=== PATIENT | female | born 1955 | race Caucasian/White ===

== ENCOUNTER 2018-10-08 11:40 | Inpatient (IN) | payer MEDICARE ==
[~2018-10-08] VITALS: Ht 162.6 cm; Wt 91.0 kg
[~2018-10-08 11:40] MED LIST changes: -ACET500; -CLIN300 PO; -LISI5 PO
[2018-10-08] MEDS ORDERED: ACET500 PO (14:35)
[2018-10-08] MEDS ORDERED: CLIN300 PO (14:35)
[2018-10-08] MEDS ORDERED: LISI5 PO ×2 (14:35→14:36)
--- NOTE | 2018-10-08 17:53 | NUR ---
SUMMARY PT ADMITTED FROM THE ER, PT IS ALERT AND ORIENTED AND INDEPENDENT IN THE ROOM, PT'S R SIDE OF HER FACE IS SLIGHTLY SWOLLEN, ICE PACK GIVEN, PT RESTING QUIETLY BUT WAKES EASILY, NO COMPLAINTS, WILL CONT TO MONITOR
[2018-10-09 05:00] LABS: BASOPHILS ABSOLUTE AUTO 0.04 K/mm3 (0.00-0.23); BASOPHILS PERCENT AUTO 1 % (0-2); EOSINOPHILS ABSOLUTE AUTO 0.18 K/mm3 (0.00-0.68); EOSINOPHILS PERCENT AUTO 2 % (0-6); Hematocrit 43.9 % (33.0-51.0); Hemoglobin 14.3 g/dL (11.5-16.0); IMMATURE GRAN ABSOLUTE AUTO 0.02 K/mm3 (0.00-0.10); IMMATURE GRAN PERCENT AUTO 0 % (0-1); LYMPHOCYTES ABSOLUTE AUTO 1.66 K/mm3 (0.84-5.20); LYMPHOCYTES PERCENT AUTO 19 % (21-46); MONOCYTES PERCENT AUTO 7 % (4-13); Mean Corpuscular HGB 30.2 pg (26.0-34.0); Mean Corpuscular HGB Conc 32.6 g/dL (31.5-36.5); Mean Platelet Volume 10.1 fL (9.1-12.4); NEUTROPHILS ABSOLUTE AUTO 6.17 K/mm3 (1.96-9.15); NEUTROPHILS PERCENT AUTO 71 % (41-73); Platelet Count 241 K/mm3 (150-400); RDW Coefficient Variation 12.2 % (11.7-14.2); Red Blood Cell Count 4.73 M/mm3 (3.80-5.20); White Blood Cell Count 8.67 K/mm3 (4.00-11.30)
[2018-10-09 05:08] LABS: Mean Corpuscular Volume 93 fL (80-100)
--- NOTE | 2018-10-09 05:18 | NUR ---
SHIFT SUMMARY PT ADMITTED FOR MUSCLE ABCESS OF THE R SIDE OF FACE. PT IS PLEASENT, COOPERATIVE, ALERT, ORIENTED, AND INDEPENDENT TO THE BATHROOM. PT HAD C/O SEVERE PAIN, ANXIETY, AND DIFFICULTY SLEEPING THIS NIGHT. HOWEVER, PT REPORTED DIFFICULTY SLEEPING PRIOR TO ARRIVAL TO THE HOSPITAL DUE TO THE PAIN AND HEADACHE, MEDICATED PER EMAR. PT FINALLY ABLE TO FALL ASLEEP, AWAKE FOR CARE FOR LABS AND MEDS AND NOW APPEARS TO BE SLEEPING COMFORTABLY WITH NO APPARENT SIGNS OF ACUTE DISTRESS. ABLE TO MAKE NEEDS KNOWN AND CALL LIGHT IN REACH.
--- NOTE | 2018-10-09 18:02 | NUR ---
SUMMARY PT SITTING UP IN BED WATCHING TV, PT HAS BEEN COOPERATIVE WITH CARE, IRRITABLE AT TIMES, PT MED PER EMAR FOR PAIN, PT HAS BEEN INDEPENDENT IN THE ROOM, VSS, NO ACUTE CHANGES, WILL CONT TO MONITOR
--- NOTE | 2018-10-10 04:29 | NUR ---
SHIFT SUMMARY NO ACUTE CHANGES NOTED SO FAR THIS SHIFT. PT ASKING FOR PAIN MEDICATIONS Q 2 HRS FOR MANAGMENT WHICH SHE FREQUENTLY STATES IS NOT EFFECTIVE. HOWEVER, WHEN ENTERING ROOM AFTER PULLING MEDS PT IS SLEEPING AND SNORING LOUDLY BUT STATING EXTREME PAIN. PT STATES THAT SHE FEELS THAT SHE SHOULD BE RECIEVING IV ANTIBIOTICS MORE THEN HER CURRENT DOSE SINCE "THE INFECTION IS SO BAD." THIS NURSE ADVISED PT TO CONSULT WITH MD IN THE AM. PT APPEARS TO BE SLEEPING COMFORTABLY AT THIS TIME SNORING VERY LOUDLY. NO APPARENT SIGNS OF ACUTE DISTRESS. ABLE TO MAKE NEEDS KNOWN AND CALL LIGHT IN REACH.
--- NOTE | 2018-10-10 10:27 | NUR ---
PT. SNORING LOUDLY AFTER RECEIVING FENTANYL, TORADOL, AND ATIVAN. NO S/S OF DISTRESS.
--- NOTE | 2018-10-10 12:01 | NUR ---
PT STILL SLEEPING AND SNORING, ROUSED UP WHEN UX RESEARCHER WENT IN ROOM AND ASKED IF IT WAS TIME FOR PAIN MEDS AGAIN THEN WENT BACK TO SNORING. DID NOT GIVE MORE PAIN MEDS AT THIS TIME.
--- NOTE | 2018-10-10 14:55 | NUR ---
PT. DEMANDED TO TALK TO DR. MARKS ABOUT HER PAIN MEDICATION, WANTS THE DILAUDID. I WAS TALKING TO DR. MARKS PT. CAME OUT AND DEMENDED TO TALK TO THE DR. TOLD DR. MARKS AND SHE SAID PUT HER ON THE PHONE. TALKED TO DR. MARKS RIGHT AFTER SHE TALKED TO THE PT. DR. MARKS SAID SHE WAS GOING TO PUT HER BACK ON THE DILAUDID AND SHE WOULD BE GETTING IT EVERY 4 HOURS TO BE STAGGERED WITH THE NORCO. DILAUDID IN 2 HOURS NORCO, IN 2 HOURS DILAUDID ETC... WHEN PT ASKED TO TAALK TO DR. MARKS SHE INDICATED SHE WAS IN EXCRUCIATING PAIN, SOON SHE KNEW SHE WAS GOING TO GET DILAUDID SHE TOOK OF FOR THE CAFETERIA WITH HER SPOUSE WITHOUT GETTING THE DILAUDID FIRST. PT. NEVER CAME BACK UNTIL 1630 AND ASKED FOR THE DILAUDID AT 1646 WHICH WAS GIVEN. AT 1745 SHE WAS ASKING FOR PAIN MEDS AGAIN WHICH IT WAS NOT TIME FOR. AT THIS TIME SHE IS SNORING LOUDLY.
--- NOTE | 2018-10-10 22:14 | NUR ---
0 PT REQUESTING TO BE WOKEN UP TO BE ASSESSED FOR PAIN. THIS NURSE EXPLAINED THAT THE MEDICATIONS THAT HAVE BEEN ORDERED FOR HER ARE NEEDED MEDICATIONS AND SHE MUST ASK FOR THEM.
--- NOTE | 2018-10-11 04:42 | NUR ---
0350 STATED IN SEVERE PAIN AND EXTREMELY ANXIOUS. REMINDED PT THAT ANXIETY MEDICATION WILL NOT BE DUE UNTIL 0630. PT MEDICATED PER EMAR (NORCO ADMINISTERED). BECAME TEARFUL, STOOD UP AND WALKED AROUND BED. TOOK PAIN MEDICATION STANDING UP. LET PT KNOW THIS NURSE WOULD BE BACK IN TO CHECK ON HER. PT WENT TO RESTROOM AFTER THIS NURSE LEFT THE ROOM. ABOUT 2 MINUTES INTO BATHROOM PT QUIT CRYING. UP WALKING AROUND; OUT IN HALLWAY. BACK TO BED AROUND 0430. CURRENTLY SNORING IN BED. WCTM.
--- NOTE | 2018-10-11 05:05 | NUR ---
SHIFT SUMMARY A/O X4, ABLE TO MAKE NEEDS KNOWN. MULTIPLE REQUESTS FROM STAFF THIS SHIFT. UP WALKING HALLWAYS PERIODICALLY. APPEARED TO REST OFF AND ON WITH SNORING. C/O PAIN RATED 7-9/10; MEDICATED PER EMAR. NEW IV PLACED TO LFA. HYPERTENSIVE THIS AM; HOWEVER, APPEARS ON TREND WITH PREVIOUS PRESSURES. ALL OTHER VITALS WNL. BED IN LOWEST POSITION. CALL LIGHT IN REACH. WCTM. REPORT TO ONCOMING RN.
[2018-10-11 08:01] LABS: BASOPHILS ABSOLUTE AUTO 0.03 K/mm3 (0.00-0.23); BASOPHILS PERCENT AUTO 0 % (0-2); EOSINOPHILS ABSOLUTE AUTO 0.14 K/mm3 (0.00-0.68); EOSINOPHILS PERCENT AUTO 1 % (0-6); Hematocrit 42.2 % (33.0-51.0); Hemoglobin 13.9 g/dL (11.5-16.0); IMMATURE GRAN ABSOLUTE AUTO 0.04 K/mm3 (0.00-0.10); IMMATURE GRAN PERCENT AUTO 0 % (0-1); LYMPHOCYTES ABSOLUTE AUTO 1.14 K/mm3 (0.84-5.20); LYMPHOCYTES PERCENT AUTO 10 % (21-46); MONOCYTES ABSOLUTE AUTO 1.07 K/mm3 (0.16-1.47); MONOCYTES PERCENT AUTO 9 % (4-13); Mean Corpuscular HGB 30.1 pg (26.0-34.0); Mean Corpuscular HGB Conc 32.9 g/dL (31.5-36.5); Mean Corpuscular Volume 91 fL (80-100); Mean Platelet Volume 9.5 fL (9.1-12.4); NEUTROPHILS ABSOLUTE AUTO 8.95 K/mm3 (1.96-9.15); NEUTROPHILS PERCENT AUTO 79 % (41-73); Platelet Count 234 K/mm3 (150-400); RDW Standard Deviation 40.2 fL (35.1-46.3); Red Blood Cell Count 4.62 M/mm3 (3.80-5.20); White Blood Cell Count 11.37 K/mm3 (4.00-11.30)
[2018-10-11 08:16] LABS: Anion Gap 5 mmol/L (6-16); Blood Urea Nitrogen 8 mg/dL (8-24); Bun/Creatinine Ratio 13.1 (12.0-20.0); CO2, Blood 31 mmol/L (21-32); Calcium, Blood 8.5 mg/dL (8.5-10.1); Chloride, Blood 100 mmol/L (98-108); Creatinine, Blood 0.61 mg/dL (0.40-1.00); Glomerular Filtration Rate >60 (60-); Glucose, Blood 120 mg/dL (70-99); Potassium, Blood 3.8 mmol/L (3.5-5.5); Sodium, Blood 136 mmol/L (136-145)
--- NOTE | 2018-10-11 18:15 | NUR ---
SHIFT SUMMARY PT HAD A CT SCAN TODAY OF THE ABCESS IN HER RT JAW. CALLED AND INFORMED ME THAT THE ABSCESS SEEMS TO HAVE GROWN. DR UPDATE THE EMAR TO ALLOW FOR MORE PAIN AND ANXIETY CONTROL, WITH MORE FREQUENT DOSAGE RATES. PT IS INDEPENDENT IN ROOM, ON ROOM AIR, CONTINENT. PT IS RECEIVING IV FLAGYL FOR THE ABSCESS SHE ALLERGIC TO AMPICILLIN. PT HAS NOT NEEDED ATIVAN DOSEAGES THROUGHOUT THIS SHIFT, BUT HAS REQUESTED THE PAIN MEDICATION. STATES POSSIBILITY OF AN E.N.T. CONSULT TOMORROW.
--- NOTE | 2018-10-12 04:27 | NUR ---
63 YEAR OLD fEMALE HAD REPEAT FACIAL CT DUE TO COMPLAINTS OF SEVERE RT SIDED MUSCLE ABSCESS. CT SHOWED WORSENING ABSCESS WITH INCREASED SIZE. ENT CONSULT PENDING,. ENT HAS NOT BEEN AVAILABLE BUT WILL BE TODAY. CONTINUES ON CLINDAMYCIN AND FLAGYL IV. MEDICATED MULTIPLE TIMES WITH IV DILAUDID 1 MG WITH HELPFUL EFFECT. WARM BLANKET TO RT FACE PRN ALSO HELPFUL. ANTIANXIETY RX ATIVAN 0.5 MG GIVEN X 1. TYLENOL 650 MG PO X 2 GIVEN WITH MILD HELPFUL EFFECT. TORADOL GIVEN Q 6 HRS PRN. TOLERATING FULL LIQUID DIET. DENIES AIRWAY COMPROMISE. ON ROOM AIR. HTN BETTER ON ORAL ANTIHYPERTENSIVE.
--- NOTE | 2018-10-12 18:32 | NUR ---
SHIFT SUMMARY DR. HUA ATTEMPTED TO DRAIN THE RT JAW ABSCESS TODAY AT BEDSIDE. PT WAS UNABLE TO OPEN MOUTH WIDE ENOUGH FOR DR TO COMPLETE THE PROCEDURE. DR HUA ORDERED DECADRON TO DECREASE THE SWELLING AND INFLAMMATION. ORDERED A NEEDLE GUIDED ULTRASOUND TO HOPEFULLY DRAIN THE ABSCESS TODAY. THE PT COMPLAINED OF PAIN AND ANXIETY PERIODICALLY THROUGHOUT THE DAY. SHE WAS TREATED PER EMAR AND BROUGHT WARM COMPRESSES PRN. NO OTHER CHANGES THROUGHOUT SHIFT. DR. HUA'S NEEDLES AND OTHER TOOLS REQUIRED FOR A POSSIBLE BEDSIDE PROCEDURE ARE AVAILABLE IN THE LOCKED DRAWER FOR HIS RETURN TOMORROW.
[2018-10-13 05:17] LABS: Anion Gap 12 mmol/L (6-16); Blood Urea Nitrogen 19 mg/dL (8-24); Bun/Creatinine Ratio 26.9 (12.0-20.0); CO2, Blood 26 mmol/L (21-32); Calcium, Blood 8.6 mg/dL (8.5-10.1); Chloride, Blood 100 mmol/L (98-108); Creatinine, Blood 0.71 mg/dL (0.40-1.00); Glomerular Filtration Rate >60 (60-); Glucose, Blood 146 mg/dL (70-99); Potassium, Blood 4.3 mmol/L (3.5-5.5); Sodium, Blood 138 mmol/L (136-145)
--- NOTE | 2018-10-13 05:22 | NUR ---
SHIFT SUMMARY PT ADMITTED FOR ABCESS OF MUSCLE. FULL CODE. FULL LIQUID DIET. LOVENOX FOR DVT. 22G IV TO L FA. PT IS NOT NEW TO THIS NURSE. PT HAS A REPEAT SCAN OF ABCESS ON 10/11/18 WITH THE RESULTS SHOWING AND INCREASE IN SIZE FROM SCAN THAT WAS PERFORMED ON 10/08/18. THE PT UNDERWENT ULTRASOUND GUIDED ASPIRATION OF THE R-SIDED FACIAL ABCESS WITH AN 18G NEEDLE THE 20G NEEDLE PRESENT NO RESULTS. 1 ML OF PURULENT MATERIAL WAS SUCCESSFULLY REMOVED FROM THE ABCESS. HOWEVER, THE PT WAS UNABLE TO TOLLERATE ADDITIONAL RESPOSITION ATTEMPTS OF THE NEEDLE IN ORDER TO POTENTIALLY REMOVE ADDITIONAL MATERIAL. PAIN CONTROL REMAINS A PROBLEM FOR PT. MEDICATED SEVERAL TIMES PER EMAR. HOWEVER, PTS PAIN DOES APPEAR TO BE BETTER CONTROLLED THEN PREVIOUS SHIFTS WITH THIS PT AND THE PT STATES THAT SHE FEELS THAT IT DOES FEEL A LITTLE BETTER. THE PT IS OUTSIDE AT THIS TIME. NO APPARENT SIGNS OF ACUTE DISTRESS THIS NIGHT. ABLE TO MAKE NEEDS KNOWN AND CALL LIGHT IN REACH.
[2018-10-13 06:31] LABS: BASOPHILS ABSOLUTE AUTO 0.02 K/mm3 (0.00-0.23); BASOPHILS PERCENT AUTO 0 % (0-2); EOSINOPHILS PERCENT AUTO 0 % (0-6); Hematocrit 41.8 % (33.0-51.0); Hemoglobin 13.9 g/dL (11.5-16.0); IMMATURE GRAN ABSOLUTE AUTO 0.07 K/mm3 (0.00-0.10); IMMATURE GRAN PERCENT AUTO 0 % (0-1); LYMPHOCYTES ABSOLUTE AUTO 0.66 K/mm3 (0.84-5.20); LYMPHOCYTES PERCENT AUTO 4 % (21-46); MONOCYTES ABSOLUTE AUTO 0.79 K/mm3 (0.16-1.47); MONOCYTES PERCENT AUTO 5 % (4-13); Mean Corpuscular HGB 30.2 pg (26.0-34.0); Mean Corpuscular HGB Conc 33.3 g/dL (31.5-36.5); Mean Corpuscular Volume 91 fL (80-100); Mean Platelet Volume 9.7 fL (9.1-12.4); NEUTROPHILS ABSOLUTE AUTO 14.99 K/mm3 (1.96-9.15); NEUTROPHILS PERCENT AUTO 91 % (41-73); Platelet Count 379 K/mm3 (150-400); RDW Coefficient Variation 11.9 % (11.7-14.2); RDW Standard Deviation 39.8 fL (35.1-46.3); White Blood Cell Count 16.53 K/mm3 (4.00-11.30)
--- NOTE | 2018-10-13 17:17 | NUR ---
PT IS AOX4 AND COOPERATIVE OF CARE. PT STATES SHE IS DOING MUCH BETTER WITH HER PAIN AND IS ABLE TO OPEN HER MOUTH UP EASIER TODAY. DR HUA WAS HAPPY WITH HER PROGRESS AND WILL TREAT WITH MEDICATION AT THIS TIME. PT IS TREATED FOR PAIN PER EMAR. NO DISTRESS NOTED AT THIS TIME. CULTURE ORDER WAS DC'D DUE TO DR HUA NOT KEEPING EXTRACTED FLUID TO CULTURE AND NOTES FROM DR HUA ARE PLACED IN CHART.
--- NOTE | 2018-10-14 03:59 | NUR ---
SHIFT SUMMARY NO ACUTE CHANGES NOTED SO FAR THIS SHIFT. PT APPEARS TO BE FEELING QUITE BETTER AND DOES NOT APPEAR TO BE IN ANY DISTRESS. PT WALKS HOSPITAL HALLS FREELY THROUGHOUT THE DAY, GOES OUTSIDE WITH FRIENDS AND TODAY ATE PIZZA FOR DINNER. MENTAL HEALTH AIDES TEACHER TOLD THIS NURSE THAT PT WAS ALSO COUGHT GOING INTO ANOTHER PATIENTS ROOM. THIS NURSE EDUCATED PT THAT IT IS NEVER OKAY TO GO INTO ANOTHER PTS ROOM REGARDLESS OF THE REASON. PT VERBALIZED AN UNDERSTANDING. PT ABLE TO MAJOR ON CONVERSATION WITHOUT DIFFICULTY. MEDICATED FOR PAIN X1 SO FAR THIS SHIFT. PT IN ROOM EATING. CAME OUT A LITTLE BIT AGO COMPLAINING ABOUT BEING HUNGRY AND MENTAL HEALTH AIDES TEACHER GAVE SNACK. NO APPARENT SIGNS OF ACUTE DISTRESS. ABLE TO MAKE NEEDS KNOWN AND CALL LIGHT IN REACH.
[2018-10-14 05:17] LABS: BASOPHILS ABSOLUTE AUTO 0.01 K/mm3 (0.00-0.23); BASOPHILS PERCENT AUTO 0 % (0-2); EOSINOPHILS PERCENT AUTO 0 % (0-6); IMMATURE GRAN ABSOLUTE AUTO 0.08 K/mm3 (0.00-0.10); IMMATURE GRAN PERCENT AUTO 1 % (0-1); LYMPHOCYTES ABSOLUTE AUTO 0.95 K/mm3 (0.84-5.20); LYMPHOCYTES PERCENT AUTO 7 % (21-46); MONOCYTES ABSOLUTE AUTO 0.29 K/mm3 (0.16-1.47); MONOCYTES PERCENT AUTO 2 % (4-13); Mean Corpuscular HGB 30.7 pg (26.0-34.0); Mean Corpuscular HGB Conc 33.3 g/dL (31.5-36.5); Mean Corpuscular Volume 92 fL (80-100); Mean Platelet Volume 10.3 fL (9.1-12.4); NEUTROPHILS ABSOLUTE AUTO 13.05 K/mm3 (1.96-9.15); NEUTROPHILS PERCENT AUTO 91 % (41-73); Platelet Count 364 K/mm3 (150-400); RDW Standard Deviation 40.8 fL (35.1-46.3); Red Blood Cell Count 4.24 M/mm3 (3.80-5.20); White Blood Cell Count 14.38 K/mm3 (4.00-11.30)
[2018-10-14 05:52] LABS: Anion Gap 6 mmol/L (6-16); Blood Urea Nitrogen 24 mg/dL (8-24); Bun/Creatinine Ratio 33.4 (12.0-20.0); CO2, Blood 29 mmol/L (21-32); Chloride, Blood 102 mmol/L (98-108); Creatinine, Blood 0.72 mg/dL (0.40-1.00); Glomerular Filtration Rate >60 (60-); Glucose, Blood 184 mg/dL (70-99); Potassium, Blood 4.1 mmol/L (3.5-5.5); Sodium, Blood 137 mmol/L (136-145)
[2018-10-14] MEDS ORDERED: CITA20 PO (11:53)
[2018-10-14] MEDS ORDERED: AMLO10 PO (11:54)
[2018-10-14] MEDS ORDERED: SACC250C PO (11:55)
--- NOTE | 2018-10-14 16:12 | NUR ---
PT DISCHARGING PT READY FOR DISCHARGE. IV REMOVED & INTACT. BELONGINGS GATHERED & ON CART. PT AWAITING TRANSPORTATION. NO CHANGES IN ASSESSMENT AT THIS TIME. VSS. PT EDUCATED ON DC INSTRUCTIONS & CHANGES IN MEDICATIONS. PT ENCOURAGED TO FIND PCP & DENTIST IN THE AREA. PT STATED SHE UNDERSTOOD INSTRUCTIONS. WILL CONTINUE TO MONITOR UNTIL PT IS OUT OF FACILITY.
== END 2018-10-14 16:20 | disposition home or self-care (01) | DRG 158 ==
LOC: ER 11:40 → MEDS 15:05 → ENPENDDIS 10-14 10:46 → MEDS 10-14 16:20
PROVIDERS: Internal Medicine; ADMIT Internal Medicine
PROC: 0H94XZX Drainage of Neck Skin, External Approach, Diagnostic (ICD-10-PCS; principal; 2018-10-12)
PROC: 3E02340 Introduction of Influenza Vaccine into Muscle, Percutaneous Approach (ICD-10-PCS; 2018-10-12)
DX: K04.7 Periapical abscess without sinus (principal); R44.3 Hallucinations, unspecified; J44.9 Chronic obstructive pulmonary disease, unspecified; I16.0 Hypertensive urgency; F17.210 Nicotine dependence, cigarettes, uncomplicated; F32.9 Major depressive disorder, single episode, unspecified; E66.9 Obesity, unspecified; T38.0X5A Adverse effect of glucocorticoids and synthetic analogues, initial encounter; I10 Essential (primary) hypertension; Z23 Encounter for immunization; Z88.0 Allergy status to penicillin; F41.9 Anxiety disorder, unspecified
CPT/HCPCS: 10030; 36415; 70450; 70487; 80048; 80053; 82550; 84145; 84484; 85025; 86140; 90686; 93005; 93010; 96374; 96375; 99285-25; C9113; G0008; J1100; J1170; J1650; J1885; J2060; J2405; J3010; J7030; J7050; Q9967

== ENCOUNTER → 2018-10-08 | Outpatient (CLI) | payer MEDICARE ==
[~2018-10-08] MED LIST: ACET500; ARIP10 PO; Boniva150 MG PO; CENTRUM MULTIV1 EACH PO; CITA20 PO; CLIN300 PO; CYCL10 PO; DULO60 PO; GABA100 PO; HYDACE5 PO; HYDACE7.5 PO; LEVFLO500 PO; LISI20 PO; LISI5 PO; LISINOPRIL; MEDICAL MARIJUANA; METR500 PO; NAPR220 PO; OXYACE7.5T PO; PROM25 PO; SULTRIDS PO; [UNRECOGNIZED DRUG - OTHER]
[2018-10-08 10:45] LABS: BASOPHILS ABSOLUTE AUTO 0.04 K/mm3 (0.00-0.23); BASOPHILS PERCENT AUTO 1 % (0-2); EOSINOPHILS ABSOLUTE AUTO 0.23 K/mm3 (0.00-0.68); EOSINOPHILS PERCENT AUTO 3 % (0-6); Hemoglobin 15.2 g/dL (11.5-16.0); IMMATURE GRAN ABSOLUTE AUTO 0.02 K/mm3 (0.00-0.10); IMMATURE GRAN PERCENT AUTO 0 % (0-1); LYMPHOCYTES ABSOLUTE AUTO 1.91 K/mm3 (0.84-5.20); LYMPHOCYTES PERCENT AUTO 22 % (21-46); MONOCYTES ABSOLUTE AUTO 0.54 K/mm3 (0.16-1.47); MONOCYTES PERCENT AUTO 6 % (4-13); Mean Corpuscular HGB 30.5 pg (26.0-34.0); Mean Corpuscular HGB Conc 33.8 g/dL (31.5-36.5); Mean Corpuscular Volume 90 fL (80-100); Mean Platelet Volume 9.9 fL (9.1-12.4); NEUTROPHILS ABSOLUTE AUTO 5.93 K/mm3 (1.96-9.15); NEUTROPHILS PERCENT AUTO 68 % (41-73); Platelet Count 271 K/mm3 (150-400); RDW Coefficient Variation 12.3 % (11.7-14.2); Red Blood Cell Count 4.98 M/mm3 (3.80-5.20); White Blood Cell Count 8.67 K/mm3 (4.00-11.30)
[2018-10-08 10:58] LABS: Alanine Aminotransfer (ALT/SGP 23 U/L (12-78); Albumin, Blood 3.6 g/dL (3.4-5.0); Alk Phos 75 U/L (40-126); Anion Gap 7 mmol/L (6-16); Aspartate Aminotrans (AST/SGOT 16 U/L (12-37); Bilirubin, Total 0.4 mg/dL (0.1-1.0); Blood Urea Nitrogen 15 mg/dL (8-24); Bun/Creatinine Ratio 20.5 (12.0-20.0); CO2, Blood 32 mmol/L (21-32); CPK Creatine Kinase 118 U/L (26-192); Chloride, Blood 102 mmol/L (98-108); Creatinine, Blood 0.73 mg/dL (0.40-1.00); Globulin, Blood 3.7 g/dL (2.2-4.0); Glomerular Filtration Rate >60 (60-); Glucose, Blood 113 mg/dL (70-99); Potassium, Blood 3.7 mmol/L (3.5-5.5); Sodium, Blood 141 mmol/L (136-145); Total Protein, Blood 7.3 g/dL (6.4-8.2)
[2018-10-08 11:05] LABS: Troponin I <0.017 ng/mL (0.000-0.040)
== END | disposition home or self-care (01) ==
LOC: LAB SHORT 10:41 → LAB EV 10:41
PROVIDERS: General Practice
DX: L03.211 Cellulitis of face (principal); I10 Essential (primary) hypertension
CPT/HCPCS: 80053; 82550; 84484; 85025

== ENCOUNTER 2018-10-17 12:00 | Emergency (ER) | payer MEDICARE ==
[~2018-10-17] VITALS: Ht 162.6 cm; Wt 86.2 kg
[~2018-10-17 12:00] MED LIST changes: +ACET500 PO; +AMLO10 PO; +CLIN300 PO; +LISI5 PO; +SACC250C PO
[2018-10-17 12:43] LABS: BASOPHILS ABSOLUTE AUTO 0.06 K/mm3 (0.00-0.23); BASOPHILS PERCENT AUTO 1 % (0-2); EOSINOPHILS ABSOLUTE AUTO 0.34 K/mm3 (0.00-0.68); EOSINOPHILS PERCENT AUTO 3 % (0-6); Hematocrit 48.4 % (33.0-51.0); IMMATURE GRAN ABSOLUTE AUTO 0.11 K/mm3 (0.00-0.10); IMMATURE GRAN PERCENT AUTO 1 % (0-1); LYMPHOCYTES ABSOLUTE AUTO 2.77 K/mm3 (0.84-5.20); LYMPHOCYTES PERCENT AUTO 23 % (21-46); MONOCYTES ABSOLUTE AUTO 0.92 K/mm3 (0.16-1.47); MONOCYTES PERCENT AUTO 8 % (4-13); Mean Corpuscular HGB 30.4 pg (26.0-34.0); Mean Corpuscular HGB Conc 33.1 g/dL (31.5-36.5); Mean Corpuscular Volume 92 fL (80-100); Mean Platelet Volume 8.8 fL (9.1-12.4); NEUTROPHILS ABSOLUTE AUTO 7.63 K/mm3 (1.96-9.15); NEUTROPHILS PERCENT AUTO 65 % (41-73); Platelet Count 555 K/mm3 (150-400); RDW Coefficient Variation 12.5 % (11.7-14.2); RDW Standard Deviation 42.6 fL (35.1-46.3); Red Blood Cell Count 5.26 M/mm3 (3.80-5.20); White Blood Cell Count 11.83 K/mm3 (4.00-11.30)
[2018-10-17 13:05] LABS: Alanine Aminotransfer (ALT/SGP 29 U/L (12-78); Albumin, Blood 3.4 g/dL (3.4-5.0); Albumin/Globulin Ratio 0.9 (0.8-1.8); Alk Phos 67 U/L (50-136); Anion Gap 7 mmol/L (6-16); Aspartate Aminotrans (AST/SGOT 10 U/L (12-37); Bilirubin, Total 0.3 mg/dL (0.1-1.0); Blood Urea Nitrogen 20 mg/dL (8-24); Bun/Creatinine Ratio 29.5 (12.0-20.0); CO2, Blood 28 mmol/L (21-32); Calcium, Blood 9.1 mg/dL (8.5-10.1); Chloride, Blood 103 mmol/L (98-108); Creatinine, Blood 0.68 mg/dL (0.40-1.00); Globulin, Blood 3.6 g/dL (2.2-4.0); Glomerular Filtration Rate >60 (60-); Glucose, Blood 150 mg/dL (70-99); Sodium, Blood 138 mmol/L (136-145)
[2018-10-17 14:06] LABS: Source, Urine Clean Catch
[2018-10-17 14:13] LABS: Appearance, Urine Clear (Clear); Bilirubin, Urine Neg (Neg); Blood, Urine Neg (Neg); Color, Urine Yellow (P-Yellow); Glucose Qualitative, Urine Neg (Neg); Ketones, Urine Neg (Neg); Leukocyte Esterase, Urine Neg (Neg); Nitrite, Urine Neg (Neg); Protein, Urine 1+ (Neg); Specific Gravity, Urine 1.025 (1.003-1.022); Urobilinogen, Urine NORM (Normal)
[2018-10-17] MEDS ORDERED: Cyclobenzaprine5 MG PO (15:23)
[2018-10-17] MEDS ORDERED: KETO10 PO (15:23)
== END 2018-10-17 15:44 | disposition home or self-care (01) ==
LOC: ER 12:00
PROVIDERS: Physician Assistant
DX: R53.81 Other malaise (principal); R53.83 Other fatigue; I10 Essential (primary) hypertension; F32.9 Major depressive disorder, single episode, unspecified; J44.9 Chronic obstructive pulmonary disease, unspecified; F17.200 Nicotine dependence, unspecified, uncomplicated; Z79.899 Other long term (current) drug therapy
CPT/HCPCS: 36415; 80053; 85025; 93005; 93010; 99283-25

== ENCOUNTER 2018-12-25 17:14 | Inpatient (IN) | payer MEDICARE ==
[~2018-12-25] VITALS: Ht 162.6 cm; Wt 80.3 kg
[~2018-12-25 17:14] MED LIST changes: +Cyclobenzaprine5 MG PO; +KETO10 PO
[2018-12-25 17:44] LABS: BASOPHILS ABSOLUTE AUTO 0.06 K/mm3 (0.00-0.23); BASOPHILS PERCENT AUTO 0 % (0-2); EOSINOPHILS ABSOLUTE AUTO 0.22 K/mm3 (0.00-0.68); EOSINOPHILS PERCENT AUTO 2 % (0-6); Hematocrit 43.7 % (33.0-51.0); Hemoglobin 14.2 g/dL (11.5-16.0); IMMATURE GRAN ABSOLUTE AUTO 0.05 K/mm3 (0.00-0.10); IMMATURE GRAN PERCENT AUTO 0 % (0-1); LYMPHOCYTES PERCENT AUTO 19 % (21-46); MONOCYTES PERCENT AUTO 7 % (4-13); Mean Corpuscular HGB 30.8 pg (26.0-34.0); Mean Corpuscular HGB Conc 32.5 g/dL (31.5-36.5); Mean Corpuscular Volume 95 fL (80-100); NEUTROPHILS ABSOLUTE AUTO 10.53 K/mm3 (1.96-9.15); NEUTROPHILS PERCENT AUTO 72 % (41-73); Platelet Count 205 K/mm3 (150-400); RDW Standard Deviation 45.4 fL (35.1-46.3); Red Blood Cell Count 4.61 M/mm3 (3.80-5.20); White Blood Cell Count 14.56 K/mm3 (4.00-11.30)
[2018-12-25 18:00] LABS: Chloride (POC) 101 mmol/L (98-108); Creatinine (POC) 0.7 mg/dL (0.6-1.0); Glucose (ISTAT POC) 154 mg/dL (70-99); Hemoglobin (POC) 14.6 g/dL (12.0-16.0); Potassium (POC) 3.3 mmol/L (3.5-5.5); Sodium (POC) 141 mmol/L (135-148); Total CO2 (POC) 27 mmol/L (21-32)
[2018-12-25 18:08] LABS: Prothrombin Time Results 10.6 Sec (9.7-11.5)
[2018-12-25 18:24] LABS: Alanine Aminotransfer (ALT/SGP 19 U/L (12-78); Albumin, Blood 3.5 g/dL (3.4-5.0); Alk Phos 70 U/L (50-136); Anion Gap 9 mmol/L (6-16); Aspartate Aminotrans (AST/SGOT 12 U/L (12-37); Bilirubin, Total 0.6 mg/dL (0.1-1.0); Blood Urea Nitrogen 12 mg/dL (8-24); Bun/Creatinine Ratio 16.4 (12.0-20.0); CO2, Blood 27 mmol/L (21-32); CPK Creatine Kinase 85 U/L (26-193); Calcium, Blood 8.7 mg/dL (8.5-10.1); Chloride, Blood 104 mmol/L (98-108); Creatine Kinase MB 2.7 ng/mL (0.0-3.6); Creatine Kinase MB Index 3.2 (0.0-4.0); Creatinine, Blood 0.73 mg/dL (0.40-1.00); Globulin, Blood 3.4 g/dL (2.2-4.0); Glomerular Filtration Rate >60 (60-); Glucose, Blood 155 mg/dL (70-99); Potassium, Blood 3.3 mmol/L (3.5-5.5); Sodium, Blood 140 mmol/L (136-145); Total Protein, Blood 6.9 g/dL (6.4-8.2); Troponin I 0.144 ng/mL (0.000-0.040)
[2018-12-25] MEDS ORDERED: [UNRECOGNIZED DRUG - CODE] INH (18:59)
[2018-12-25] MEDS ORDERED: [UNRECOGNIZED DRUG - CODE] PO (19:03)
[2018-12-25 20:48] LABS: International Normalized Ratio 1.01; Prothrombin Time Results 10.7 Sec (9.7-11.5)
[2018-12-25] MEDS ORDERED: LISI20 PO (20:49)
--- NOTE | 2018-12-25 21:23 | NUR ---
CALLED PHARMACY: GAVE NEW ApTT VALUE OF 71.0 AND CURRENT WEIGHT.
--- NOTE | 2018-12-25 22:21 | NUR ---
DR. DENNY NOTIFIED AT [address] DURAN ORTEGA NOTIFIED FOR TOMORROW.
--- NOTE | 2018-12-25 22:23 | NUR ---
TR BAND WNL. PT WITH NO COMPLAINTS OTHER THAN CONTINUED HEADACHE PAIN WHICH IS NOW 03/27
--- NOTE | 2018-12-26 01:22 | NUR ---
PT HEADACHE MOSTLY RESOLVED AFTER SECOND DOSE OF FENTANYL. PT AWAKE AND WATCHING TV. PT STATES, "I'M A NIGHT OWL". PT WITH NO OTHER COMPLAINTS OR REQUESTS. CALL LIGHT WITHIN REACH.
[2018-12-26 03:41] LABS: BASOPHILS ABSOLUTE AUTO 0.03 K/mm3 (0.00-0.23); BASOPHILS PERCENT AUTO 0 % (0-2); EOSINOPHILS ABSOLUTE AUTO 0.13 K/mm3 (0.00-0.68); EOSINOPHILS PERCENT AUTO 2 % (0-6); Hematocrit 40.5 % (33.0-51.0); Hemoglobin 13.1 g/dL (11.5-16.0); IMMATURE GRAN ABSOLUTE AUTO 0.01 K/mm3 (0.00-0.10); IMMATURE GRAN PERCENT AUTO 0 % (0-1); LYMPHOCYTES ABSOLUTE AUTO 2.34 K/mm3 (0.84-5.20); LYMPHOCYTES PERCENT AUTO 31 % (21-46); MONOCYTES PERCENT AUTO 9 % (4-13); Mean Corpuscular HGB 30.5 pg (26.0-34.0); Mean Corpuscular HGB Conc 32.3 g/dL (31.5-36.5); Mean Corpuscular Volume 94 fL (80-100); Mean Platelet Volume 9.6 fL (9.1-12.4); NEUTROPHILS ABSOLUTE AUTO 4.45 K/mm3 (1.96-9.15); NEUTROPHILS PERCENT AUTO 58 % (41-73); Platelet Count 160 K/mm3 (150-400); RDW Coefficient Variation 13.1 % (11.7-14.2); RDW Standard Deviation 45.1 fL (35.1-46.3); White Blood Cell Count 7.66 K/mm3 (4.00-11.30)
--- NOTE | 2018-12-26 03:42 | NUR ---
TR BAND REMOVED: AIR TITRATED DOWN T/O NOC WITH NO DRAINAGE NOTED FROM ACCESS SITE. TR BAND REMOVED. ARM BOARD ON. PT TOLERATING WELL.
[2018-12-26 03:59] LABS: Alanine Aminotransfer (ALT/SGP 19 U/L (12-78); Albumin, Blood 3.1 g/dL (3.4-5.0); Alk Phos 63 U/L (50-136); Anion Gap 6 mmol/L (6-16); Aspartate Aminotrans (AST/SGOT 18 U/L (12-37); Bilirubin, Total 0.5 mg/dL (0.1-1.0); Blood Urea Nitrogen 9 mg/dL (8-24); Bun/Creatinine Ratio 14.4 (12.0-20.0); CO2, Blood 26 mmol/L (21-32); Calcium, Blood 7.9 mg/dL (8.5-10.1); Chloride, Blood 110 mmol/L (98-108); Creatinine, Blood 0.62 mg/dL (0.40-1.00); Globulin, Blood 3.1 g/dL (2.2-4.0); Glomerular Filtration Rate >60 (60-); Glucose, Blood 92 mg/dL (70-99); Potassium, Blood 3.7 mmol/L (3.5-5.5); Sodium, Blood 142 mmol/L (136-145); Total Protein, Blood 6.2 g/dL (6.4-8.2)
--- NOTE | 2018-12-26 07:46 | NUR ---
0715-ASSUMED CARE OF PT. PT IS ALERT AND ORIENTED. PT STATED SHE'S BREATHING A LITTLE NOW THAN YESTERDAY. R RADIAL ACCESS SITE HAS SLIGHT HEMATOMA NOTED, SLIGHT BRUISING NOTE WELL ABOVE THE PUNCTURE SITE. PT STATES IT IS TENDER WHEN TOUCHED. PT STATES SHE HAS TINGLING TO HER FINGERS BUT THIS IS NORMAL FOR HER SHE STATED. PT IS ON HEPARIN DRIP @ 14.5 UNITS/KG/HR WITH DOSE WT OF 64 KG. 0752-MASH PREPARATORY OPERATOR AT BEDSIDE DOING AN ECHOCARDIOGRAM.
--- NOTE | 2018-12-26 08:11 | NUR ---
PT SEEN BY DR. LAWRENCE. UPDATED HIM OF PT'S STATUS. ORDERS RECEIVED.
--- NOTE | 2018-12-26 11:45 | NUR ---
PT DESTATS TO LOW 87% ON ROOM AIR WHILE ASLEEP. STARTED PT ON 2LPM NC.
--- NOTE | 2018-12-26 14:47 | NUR ---
Hallie is active in her [employer] te[employer]al and Father Garrett will be providing prayer and sacrements throughout hospitalization. Per admit trigger, I met with Hallie to offer information regarding an advacned directive. she was polite, but did not see a need for this document. Advised I would remain available.
--- NOTE | 2018-12-26 15:16 | NUR ---
1100-PT SLEEPING AT THIS TIME, ON ROOM AIR. PT'2 O2 SATURATION HAD DROPPED TO 87% ON ROOM AIR. PT STATED THAT SHE WAS DIAGNOSED WITH SLEEP APNEA 20 YEARS AGO AND WAS ORDERED TO USE A CPAP BUT SHE'S NOT TOLERATING THE CPAP MASK OF ANY KIND. WHEN AWAKE PT'S O2 SATURATION ABOVE 90%. 1200-PLACED PT ON 2 LPM NC. 1500-INFORMED DR. BARAJAS PT WAS PLACED BACK ON O2 SINCE PT DESATURATED WHEN SHE WAS SLEEPING ON ROOM AIR. ORDERS RECEIVED. FOR SLEEP OXYMETRY TONIGHT. PT WILL BE TRANSFERED TO MEDICAL FLOOR WHEN ROOM IS AVAILABLE.
--- NOTE | 2018-12-26 17:38 | NUR ---
SHIFT SUMMARY: PT IS ALERT AND ORIENTED. PT DENIES ANY HEADACHE AT THIS TIME. PT GETS SHORT OF BREATH WITH ACITIVITY. PT DESATS WHEN OFF O2 DURING SLEEP. AFEBRILE. PT HAS BEEN GETTING OUT OF BED TO USE THE BEDSIDE COMMODE AND THE BATHROOM. R RADIAL ACCESS SITE- SLIGHT HEMATOMA NOTED ABOVE THE PUNCTURE SITE. AFEBRILE.
--- NOTE | 2018-12-26 20:41 | NUR ---
ASSUMED CARE OF PT REPORT RCV'D FROM DANILO ARCE. PT ALERT/ORIENTED ON 2L NC D/T DECREASED O2 WITH SLEEPING. PT STANDBY ASSIST D/T DYSPNEA WITH EXERTION. SEE FULL SHIFT ASSESSMENT.
--- NOTE | 2018-12-26 22:07 | NUR ---
RT IN PT'S ROOM TO BEGIN SLEEP STUDY. PROCESS EXPLAINED TO PT, PT STATES SHE HAS NO QUESTIONS.
[2018-12-27 05:35] LABS: BASOPHILS ABSOLUTE AUTO 0.04 K/mm3 (0.00-0.23); BASOPHILS PERCENT AUTO 1 % (0-2); EOSINOPHILS ABSOLUTE AUTO 0.17 K/mm3 (0.00-0.68); EOSINOPHILS PERCENT AUTO 2 % (0-6); Hematocrit 41.1 % (33.0-51.0); Hemoglobin 13.3 g/dL (11.5-16.0); IMMATURE GRAN ABSOLUTE AUTO 0.01 K/mm3 (0.00-0.10); IMMATURE GRAN PERCENT AUTO 0 % (0-1); LYMPHOCYTES PERCENT AUTO 19 % (21-46); MONOCYTES ABSOLUTE AUTO 0.62 K/mm3 (0.16-1.47); MONOCYTES PERCENT AUTO 7 % (4-13); Mean Corpuscular HGB 30.4 pg (26.0-34.0); Mean Corpuscular HGB Conc 32.4 g/dL (31.5-36.5); Mean Corpuscular Volume 94 fL (80-100); Mean Platelet Volume 9.9 fL (9.1-12.4); NEUTROPHILS ABSOLUTE AUTO 5.99 K/mm3 (1.96-9.15); NEUTROPHILS PERCENT AUTO 71 % (41-73); Platelet Count 177 K/mm3 (150-400); RDW Standard Deviation 44.7 fL (35.1-46.3); Red Blood Cell Count 4.37 M/mm3 (3.80-5.20); White Blood Cell Count 8.43 K/mm3 (4.00-11.30)
--- NOTE | 2018-12-27 05:51 | NUR ---
SHIFT SUMMARY NO ACUTE CHANGES OVERNIGHT. PT COMPLETED SLEEP STUDY. PT UP TO TOILET WITH STANDBY ASSIST ON MULTIPLE OCCASIONS WITH NO DIFFICULTY. PT REMAINS ON 2L NC WITH SATS IN THE LOW 90'S. WILL REPORT TO DAYSHIFT NURSE.
--- NOTE | 2018-12-27 08:00 | NUR ---
PT DROWSY BUT AWAKE. DENIES C/O PAIN. DENIES SOB WORSE THAN BASELINE. RESP EVEN NON LABORED. O2 SATS 90% ON RA; WILL MONITOR PT MAY BE DC'D HOME TODAY.
--- NOTE | 2018-12-27 08:08 | NUR ---
PT'S O2 SATS DROPPED TO 88-89% ON RA. 02 TITRATED UP TO 2L VIA N/C. SATS 90-92% ON 2L. PT IRRITABLE THIS AM
--- NOTE | 2018-12-27 10:23 | NUR ---
NIGHT O2 STUDY SHOWN TO ISTRATE. REST AND EXERCISE O2 STUDY BEING COMPLETED NOW. PT MAY BE DC'D HOME TODAY W O2.
--- NOTE | 2018-12-27 11:54 | NUR ---
Pt. is in bed resting and she reports to be doing much better encouraged pt. and offered prayers.
[2018-12-27] MEDS ORDERED: ACET325 PO (13:54)
[2018-12-27] MEDS ORDERED: CARV6.25 PO (13:54)
[2018-12-27] MEDS ORDERED: XARELTO15 MG PO (13:55)
[2018-12-27] MEDS ORDERED: OMEPRAZOLE MAGN20 MG PO (13:55)
[2018-12-27] MEDS ORDERED: HYDR10 PO (13:56)
[2018-12-27] MEDS ORDERED: ONDA4ODT MM (13:56)
--- NOTE | 2018-12-27 14:17 | NUR ---
DISCHARGE BP 166/106. ISTRATE NOTIFIED. PO HYDRALAZINE GIVEN. PT MAY BE DC'D WHEN SBP <150, AND DBP <90. PT RESTING IN BED WATCHING TV. VERBAL AND WRITTEN DC INSTRUCTIONS GIVEN TO PT W CLEAR UNDERSTANDING. DC INFORMATION GIVEN ON PE SYMPTOMS AND WHEN TO CALL ;/911, O2, WOUND SITE, NEW MEDS, DR APPOINTMENT MADE FOR PT. RX FAXED TO [facility]
--- NOTE | 2018-12-27 15:28 | NUR ---
BP REMAINS CONSISTANLY HIGH WITH LAST BP 198/110. DR ISTRATE CALLED. IV TO BE PLACED W PRN HTN MEDS TO KEEP SBP<150
--- NOTE | 2018-12-27 16:44 | NUR ---
PT BP 219/111. BOTH HYDRALAZINE AND LOPRESSOR GIVEN SLOWLY IVP. MOST RECENT BP 181/96. DR FLEMINGTRATE CALLED; NEW ORDERS FOR VASOTEC IV.
--- NOTE | 2018-12-27 19:29 | NUR ---
PT STAYING ANOTHER NIGHT PER DR ISTRATE. BP 147/75. PT SLEEPING W/O COMPLAINTS. REPORT GIVEN TO NIGHT RN.
--- NOTE | 2018-12-27 21:46 | NUR ---
ASSUMED CARE OF PT. PT ALERT AND ORIENTED SITTING ON TOILET. PT ABLE TO INDEPENDENTLY AMBULATE IN ROOM WITH STANDBY ASSIST. PT STATES THAT SHE HAS HAD A HEADACHE FOR MOST OF THE DAY AND REQUESTS AND INCREASE IN HER OXYGEN FROM 2L TO 4L. SPO2 MONITOR PLACED ON PT'S FINGER AND SATS AT HIGH 80'S. PT IS TACHYPNEIC AND BREATHING THROUGH HER NOSE. O2 INCREASED TO 4L, O2 SATS AT 94% AND PT'S WORK OF BREATHING DECREASED. PT MEDICATED FOR HEADACHE AND FOR CONTINUED HTN. SEE FULL SHIFT SUMMARY.
--- NOTE | 2018-12-28 06:32 | NUR ---
SHIFT SUMMARY PT HAS EXHIBITED INCREASED DYSPNEA WITH EXERTION THIS SHIFT IN COMPARISON TO PREVIOUS NIGHT. PT O2 WAS INCREASED TO 4L TO MAINTAIN O2 SATS OVER 90%. WHEN AMBULATING TO TOILET OR BEDSIDE COMMODE PT IS VISIBLY SOB AND TACHYPNEIC TAKING DEEP BREATHS THROUGH HER NOSE. PT O2 WAS TURNED DOWN TO 3L AT 0600 AND PT BECAME PANICKED AND FELT LIKE SHE WASN'T BREATHING WELL DESPITE HER O2 SATS REMAINING IN THE 90'S. PT WAS EDUCATED ON COPD AND O2 SATURATION GOALS. PT REPORTS THAT SHE FEELS MUCH MORE SHORT OF BREATH THIS NIGHT THAN THE PREVIOUS NIGHT. PT'S LUNG SOUNDS CLEAR THROUGHOUT. PT'S SPB HAS BEEN LABILE VARYING FROM 110-220. PT HAS BEEN MEDICATED TWICE FOR "HTN RELATED HEADACHE" THAT PT REPORTS 8/10 PAIN. WILL REPORT TO DAYSHIFT NURSE.
--- NOTE | 2018-12-28 07:30 | NUR ---
RECEIVED REPORT FROM CLAUDE FAJARDO, AND ASSUMED CARE OF PT.
--- NOTE | 2018-12-28 10:58 | NUR ---
DISCHARGE INSTRUCTIONS PROVIDED TO PT, QUESTIONS ANSWERED. PT DRESSED AND READY TO BE ESCORTED OUT WHEN HER RIDE ARRIVES. PT WITH PORTABLE OXYGEN TANK THAT SHE WILL SWITCH HER OXYGEN TUBING TO PRIOR TO BEING WHEELED OUT. PROVIDED PT WITH TELEPHONE NUMBER FOR [employer] [facility], TO MAKE ARRANGEMENTS FOR THEM TO COME TO THE HOUSE ONCE SHE ARRIVES HOME. SOON PT'S RIDE ARRIVES AND SHE IS BEING WHEELCHAIRED OUTSIDE, I WILL CALL [employer] AND GIVE THEM AN ESTIMATED TIME OF PT'S ARRIVAL HOME.
--- NOTE | 2018-12-28 11:19 | NUR ---
PT ESCORTED OUT VIA WHEELCHAIR BY [facility]ESS[facility], AND PT'S AT SIDE.
--- NOTE | 2018-12-28 11:20 | NUR ---
CALLED [facility], TO ADVISE THAT PT SHOULD BE HOME IN ABOUT 30 MINUTS.
--- NOTE | 2018-12-28 11:31 | NUR ---
Met pt. sitting in a chair restinng and waiting for a ride home , pt reports discharged and is happy going home for good offered prayers for the pt.
[2018-12-28 22:09] LABS: ANTITHROMBIN ACTIVITY 98 % (75-135); PROTEIN C-FUNCTIONAL 102 % (73-180); PROTEIN S-FUNCTIONAL 72 % (63-140)
== END 2018-12-28 11:20 | disposition home or self-care (01) | DRG 176 ==
LOC: ER 17:14 → ICUW 17:50
PROVIDERS: Emergency Medicine; Family Medicine; ADMIT Internal Medicine
DX: I26.99 Other pulmonary embolism without acute cor pulmonale (principal); I82.4Z2 Acute embolism and thrombosis of unspecified deep veins of left distal lower extremity; I27.20 Pulmonary hypertension, unspecified; I16.0 Hypertensive urgency; I10 Essential (primary) hypertension; F32.9 Major depressive disorder, single episode, unspecified; J44.9 Chronic obstructive pulmonary disease, unspecified; M81.0 Age-related osteoporosis without current pathological fracture; E87.6 Hypokalemia; F17.210 Nicotine dependence, cigarettes, uncomplicated; Z88.0 Allergy status to penicillin; Z88.8 Allergy status to other drugs, medicaments and biological substances; Z79.899 Other long term (current) drug therapy
CPT/HCPCS: 36415; 71275; 80047; 80053; 82550; 82553; 84484; 85014; 85025; 85300; 85303; 85306; 85610; 85730; 93005; 93010; 93306; 93458; 93970; 94761; 94762; 99152; 99285-25; J0360; J1644; J2250; J3010; J7030; Q9967

== ENCOUNTER 2019-05-19 07:29 | Emergency (ER) | payer MEDICARE ==
[~2019-05-19] VITALS: Ht 162.6 cm; Wt 79.4 kg
[~2019-05-19 07:29] MED LIST changes: +ACET325 PO; +CARV6.25 PO; +HYDR10 PO; +OMEPRAZOLE MAGN20 MG PO; +ONDA4ODT MM; +XARELTO15 MG PO; +[UNRECOGNIZED DRUG - CODE] INH; +[UNRECOGNIZED DRUG - CODE] PO
[2019-05-19 09:57] LABS: Source, Urine Clean Catch
[2019-05-19 10:02] LABS: Bilirubin, Urine Neg (Neg); Blood, Urine Neg (Neg); Glucose Qualitative, Urine Neg (Neg); Ketones, Urine 1+ (Neg); Leukocyte Esterase, Urine 1+ (Neg); Nitrite, Urine Neg (Neg); Protein, Urine 1+ (Neg); Specific Gravity, Urine 1.025 (1.003-1.022); Urobilinogen, Urine NORM (Normal)
[2019-05-19 10:11] LABS: Appearance, Urine Clear (Clear); Color, Urine Yellow (P-Yellow)
[2019-05-19 10:12] LABS: Bacteria Mod /hpf; Mucus Light (0-Heavy); Red Blood Cells, Urine Not Seen /hpf (0-2); Squamous Epithelial Cells Few /hpf (Few); White Blood Cells, Urine 0-2 /hpf (0-5)
[2019-05-19] MEDS ORDERED: Robaxin-750750 MG PO (10:28)
[2019-05-19] MEDS ORDERED: HYDR1TAB94 PO (10:28)
[2019-05-19] MEDS ORDERED: CEFP200 PO (10:28)
[2019-05-19] MEDS ORDERED: KETO10 PO (10:28)
== END 2019-05-19 10:40 | disposition home or self-care (01) ==
LOC: ER 07:29
PROVIDERS: Physician Assistant
DX: M62.830 Muscle spasm of back (principal); R82.71 Bacteriuria; Z88.0 Allergy status to penicillin; Z88.8 Allergy status to other drugs, medicaments and biological substances; Z79.899 Other long term (current) drug therapy; I10 Essential (primary) hypertension; F32.9 Major depressive disorder, single episode, unspecified; J44.9 Chronic obstructive pulmonary disease, unspecified; F17.200 Nicotine dependence, unspecified, uncomplicated
CPT/HCPCS: 81001; 87086; 96372-59; 96374; 99283-25; J1100; J3010